=== PATIENT | male | born 1955 | race African-American/Black ===

== ENCOUNTER 2016-12-21 12:19 | Observation (INO) | payer OTHER, SELFPAY ==
[2016-12-21 12:43] LABS: #Basophils 0.1 thou/uL (0.0-0.2); #Eosinphils 0.1 thou/uL (0.0-0.7); #Lymphocytes 1.4 thou/uL (1.20-3.40); #Monocytes 0.7 thou/uL (0.11-0.59); #Neutrophils 2.8 thou/uL (1.40-6.50); %Eosinophils 1.4 % (0.0-10.0); %Lymphocytes 28.2 % (21.0-51.0); %Monocytes 14.4 % (0.0-10.0); Hematocrit 34.6 % (42.0-52.0); Mean Platelet Volume 7.6 fL (7.4-10.4)
[2016-12-21] MEDS ORDERED: Lidocaine Viscous Sol 2% 15 ml UD Cup ONE (12:59)
[2016-12-21] MEDS ORDERED: Mag-Al 1200 mg/1200 mg/30 ML UDCUP ONE (12:59)
[2016-12-21] MEDS ORDERED: Ondansetron HCl/PF 4 MG/2 ML Vial ONE (12:59)
--- NOTE | 2016-12-21 13:05 | RAD ---
CHEST 2 VIEWS: Date: 12/21/16 HISTORY: Chest pain. COMPARISON: 12/13/12. FINDINGS: Cardiac silhouette and pulmonary vasculature are unremarkable. Lungs remain hyperinflated. Mediastin um is midline. There is no confluent air space consolidation, pneumothorax, or pleural fluid evident . IMPRESSION: No active cardiopulmonary abnormalities are demonstrated. POS: [facility]
[2016-12-21 13:12] LABS: ALT (SGPT) 13 U/L (8-55); AST (SGOT) 17 U/L (5-34); Alkaline Phosphatase 66 U/L (40-150); Anion Gap 10 mmol/L (10-20); BUN (Urea Nitrogen) 7 mg/dL (8.4-25.7); Bilirubin, Total 0.4 mg/dL (0.2-1.2); CK (CPK) 109 U/L (30-200); Calc. Creatinine Clearance 0 mL/min (70-130); Calcium 8.3 mg/dL (7.8-10.44); Carbon Dioxide 31 mmol/L (23-31); Chloride 100 mmol/L (98-107); Estimated GFR-MDRD Greater than 90; Globulin 3.5 g/dL (2.4-3.5); Lipase 10 U/L (8-78)
[2016-12-21 13:14] LABS: Troponin I Less than 0.010 ng/mL (< 0.028)
[2016-12-21] MEDS ORDERED: Potassium Chloride 20 MEQ TAB ONE (13:31)
[2016-12-21 15:19] LABS: Bilirubin Negative (Negative); Blood, Urine Negative (Negative); Glucose, Urine (Dipstick) Negative (Negative); Ketone, Urine Negative (Negative); Nitrite Negative (Negative); Protein, Urine (Dipstick) Trace mg/dL (Neg-Trace); Urobilinogen 0.2 mg/dL (0.2-1.0)
[2016-12-21 15:49] LABS: Troponin I 0.011 ng/mL (< 0.028)
[2016-12-21] MEDS ORDERED: hydrALAZINE 20 MG/ML VIAL ONE (16:04)
[2016-12-21] MEDS ORDERED: Lidocaine 2% Viscous Solution 20 ML, Aluminum & Magnesium Hydroxide 30 ML, Donnatal Eli... SSW SCH ×3 (17:11)
[2016-12-21] MEDS ORDERED: Amlodipine 5 MG TAB PO SCH (17:11)
[2016-12-21] MEDS ORDERED: Loperamide HCl 2 MG CAP PO PRN (17:11)
[2016-12-21] MEDS ORDERED: Milk Of Magnesia 30 ML UDCUP PO PRN (17:11)
[2016-12-21] MEDS ORDERED: Guaifenesin DM 100-10/5 ML UDCUP PO PRN (17:11)
[2016-12-21] MEDS ORDERED: Zolpidem Tartrate 5 MG TAB PO PRN (17:11)
[2016-12-21] MEDS ORDERED: Nitroglycerin 0.4 MG TAB (25 Tab Bottle) PO PRN (17:11)
[2016-12-21 17:13] VITALS: BMI 22.4
[2016-12-21] MEDS ORDERED: Potassium Chloride 20 MEQ TAB PO SCH (17:45)
[2016-12-21 18:06] LABS: Amphetamine Not Detected (NotDetected); Methadone Not Detected (NotDetected); Methamphetamine Not Detected (NotDetected)
--- NOTE | 2016-12-21 18:23 | HP ---
DATE OF ADMISSION: 12/21/2016 PRIMARY CARE PHYSICIAN: Tyson stephens. REASON FOR ADMISSION: Epigastric abdominal pain. HISTORY OF PRESENT ILLNESS: This is a 56-year-old male with history of peptic ulcer disease, hypertension, polysubstance abuse, chronic tobacco use, noncompliance, chronic back pain, came to the hospital with above complaints. Patient is a poor historian, not able to give history. He was complaining of some chest pain. However, he was actually working with his family of his moving his apartment and he started having pain all over, mainly in the epigastric area. He had similar complaints a few years back and had similar admission. The patient had vomiting for the last couple of days and was found to be hypokalemic, no diarrhea reported. No back pain, no leg swelling, no sinus drainage, no skin rash, no sick contacts at home, no palpitation, no shortness of breath reported to me. PAST MEDICAL HISTORY: Positive for peptic ulcer disease, hypertension, polysubstance abuse, chronic tobacco use, noncompliance, chronic back pain. PAST SURGICAL HISTORY: Brain tumor removal, EGD, and colonoscopy. The patient cannot give a good account of, so the history was reviewed from the review of the records. HOME MEDICATIONS: He denies taking any medication. He said he takes blood pressure medicine of his 's sometimes. ALLERGIES: No known drug allergies. SOCIAL HISTORY: He reports using marijuana and also smokes a half-pack per day and drinks whenever he could, mostly 6 packs of beer. The patient has reported usage of cocaine in the past. FAMILY HISTORY: Positive for breast cancer in his mom. REVIEW OF SYSTEMS: The following complete review of systems was negative, unless otherwise mentioned in the HPI or below: Constitutional: Weight loss or gain, ability to conduct usual activities. Skin: Rash, itching. Eyes: Double vision, pain. ENT/Mouth: Nose bleeding, neck stiffness, pain, tenderness. Cardiovascular: Palpitations, dyspnea on exertion, orthopnea. Respiratory: Shortness of breath, wheezing, cough, hemoptysis, fever or night sweats. Gastrointestinal: Poor appetite, abdominal pain, heartburn, nausea, vomiting, constipation, or diarrhea. Genitourinary: Urgency, frequency, dysuria, nocturia. Musculoskeletal: Pain, swelling. Neurologic/Psychiatric: Anxiety, depression. Allergy/Immunologic: Skin rash, bleeding tendency. PHYSICAL EXAMINATION: GENERAL: This is a thin-built white male, in no apparent distress. VITAL SIGNS: Pulse 72, respiratory rate 18, blood pressure 194/104. HEENT: Atraumatic, normocephalic. Oral mucosa is moist. NECK: Supple. HEENT: Pupils equal, round, and reactive to light. NECK: Supple. No carotid bruit. CARDIOVASCULAR: S1, S2 heard. Rate and rhythm regular. RESPIRATORY: Clear. GASTROINTESTINAL: Abdomen is soft, nontender, bowel sounds are heard. MUSCULOSKELETAL: No tenderness. DERMATOLOGIC: No skin rash. NEUROLOGIC: Alert, awake. PSYCHIATRIC: Normal affect normal. LABORATORY AND X-RAY FINDINGS: WBC 5.0, hemoglobin is 10.9, potassium is 2.5, BUN is 7, creatinine is 0.9, albumin is 3.5. ASSESSMENT AND PLAN: 1. Abdominal/chest pain. Plan is to rule out a cardiac etiology. We will also do ultrasound of the abdomen. We will check stress test in the morning. We will check cardiac profile. I do not think this is cardiac in origin, but we will rule out cardiac etiology given his substance abuse. 2. Hypertension, not on any medication. We will start on amlodipine for now. We will hold beta sergey and ROME inhibitor. At this point, we will up titrate medication as needed. We will also use p.r.n. hydralazine at this point. 3. Polysubstance abuse. We will check urine drug screen and . 4. Severe hypokalemia. Plan is to replace the potassium, closely monitor potassium and magnesium level and replace magnesium also. 5. Anemia, mild, which is microcytic. We will check iron studies. 6. History of alcohol abuse. 7. Mild proteinuria and malnutrition with mild hypoalbuminemia. 8. P.r.n. order set. 9. Code status: FULL. 10. Gastrointestinal/deep vein thrombosis prophylaxis. We will use sequential compression devices and Protonix. 11. The patient was also given gastrointestinal cocktail and started on Protonix and we will follow and we will check abdominal ultrasound to rule out any abdominal pathology for pain and CAT scan if needed. 12. Further decision will be made based on clinical course. We will order a stress test for the morning. Keep patient n.p.o. MTDD
[2016-12-21 18:41] LABS: Troponin I Less than 0.010 ng/mL (< 0.028)
[2016-12-21] MEDS ORDERED: Ondansetron HCl/PF 4 MG/2 ML Vial IVP PRN (19:15)
[2016-12-21] MEDS: HYDROcodone/Acetaminophen 7.5/325 mg Tablet PO PRN ×2 (19:48→23:59)
[2016-12-21] MEDS ORDERED: hydrALAZINE 20 MG/ML VIAL SLOW IVP PRN (20:00)
[2016-12-21 22:57] LABS: Troponin I Less than 0.010 ng/mL (< 0.028)
[2016-12-22 06:09] LABS: Anion Gap 8 mmol/L (10-20); BUN (Urea Nitrogen) 7 mg/dL (8.4-25.7); Calc. Creatinine Clearance 90 mL/min (70-130); Calcium 8.1 mg/dL (7.8-10.44); Carbon Dioxide 24 mmol/L (23-31); Chloride 105 mmol/L (98-107); Cholesterol 108 mg/dl (< 200 Desired); Estimated GFR-MDRD Greater than 90; Iron 13 ug/dL (65-175); LDL Cholesterol, Calculated 44 mg/dL
[2016-12-22 06:12] LABS: Hematocrit 34.4 % (42.0-52.0); Mean Platelet Volume 8.3 fL (7.4-10.4); Neutrophil 47 % (42-75); Nucleated RBC 1 % (0); Red Blood Cell (RBC) Count 4.35 mill/uL (4.70-6.10); White Blood Cell (WBC) Count 4.6 thou/uL (4.8-10.8)
[2016-12-22] MEDS ORDERED: Amlodipine 10 MG TAB PO SCH (09:00)
[2016-12-22] MEDS ORDERED: FLU VACC QS2017-18 36 mo. & older 0.5 ML SYRINGE IM ONE (09:00)
[2016-12-22] MEDS ORDERED: IRON SUCROSE COMPLEX 100 MG/5 ML SLOW IVP SCH (09:15)
--- NOTE | 2016-12-22 09:42 | ULT ---
ULTRASOUND ABDOMEN: HISTORY: Epigastric pain. FINDINGS: There are cysts in the liver, measuring up to 1.6 cm. The spleen measures 9 cm in length and is unr emarkable. No gallstones, gallbladder wall thickening, or pericholecystic fluid is seen. The commo n duct measures 6 mm in diameter. The pancreas is obscured due to overlying bowel gas. The kidneys and visualized portions of the aorta and IVC are unremarkable. No free fluid is seen. IMPRESSION: 1. Hepatic cysts. 2. No evidence of cholelithiasis. POS: [facility]
[2016-12-22] MEDS: Potassium Chloride 20 MEQ TAB PO SCH ×2 (11:56→16:14)
[2016-12-22] MEDS: HYDROcodone/Acetaminophen 7.5/325 mg Tablet PO PRN (11:57)
[2016-12-22 15:31] VITALS: BP 174/95; TEMP 98.6
[2016-12-22] MEDS ORDERED: Hydrochlorothiazide 25 MG TAB PO SCH (16:00)
--- NOTE | 2016-12-22 16:04 | NM ---
CARDIAC SPECT: 12/22/16 HISTORY: 61-year-old male with chest pain, hypertension, smoker. TECHNIQUE: A myocardial perfusion scan was performed using the single isotope one day protocol with technetium 99m Sestamibi. 10 millicuries was injected intravenously for the rest exam followed by 33 millicurie s for the stress study. Pharmacologic stress with Lexiscan was monitored and interpreted by Lety Rashid , nurse practitioner. FINDINGS: Homogeneous tracer distribution is seen in the myocardial segments on stress and rest images without fixed or reversible defects. GATED SPECT LVEF: 45%. WALL MOTION EXAM: Normal. IMPRESSION: Normal myocardial perfusion scan. POS: [facility]
[2016-12-22] MEDS ORDERED: Regadenoson 0.4 MG/5 ML SYRINGE ONE (16:24)
--- NOTE | 2016-12-23 01:30 | DIS ---
DATE OF ADMISSION: 12/21/2016 DATE OF DISCHARGE: 12/22/2016 CONDITION AT THE TIME OF DISCHARGE: Stable and improved. DISCHARGE DIAGNOSES: 1. 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 2. Uncontrolled hypertension. 3. Medication compliance. 4. Drug abuse. 5. Tobacco abuse. 6. History of peptic ulcer disease. 7. Hypertension. 8. Chronic back pain. DISCHARGE MEDICATIONS: Include amlodipine 10 mg daily, hydrochlorothiazide 12.5 mg p.o. daily and o meprazole 20 mg daily. PROCEDURES DONE IN THE HOSPITAL: Include; 1. Abdominal ultrasound, which is negative for any cholelithiasis gallbladder wall thickening or pe richolecystic fluid. Hepatic cyst seen. 2. Nuclear medicine stress test, which is negative for any reversible or fixed defect. EF estimate d at 45%. ADMISSION HISTORY: Mr. Hewitt is a 61-year-old -Turkmen male with history of hypertension , peptic ulcer disease, substance abuse, noncompliance, who presented to the Emergency Room with com plaints of epigastric abdominal pain. He was hemodynamically stable upon presentation, but the bloo d pressure was as high as 194/104. He was admitted to rule out cardiac etiology as well as abdomina l workup. His urine drug screen was positive for cocaine. Please see admission history and physica l for further details. His potassium at the time of presentation was also low at 2.5. HOSPITAL COURSE: He was admitted on telemetry unit and serial cardiac enzymes were trended. They r emained within normal range. His potassium was supplemented and was 3.6 prior to discharge. His li pid panel was checked and his LDL was 44, total cholesterol 108 and triglycerides 32. TSH was unrem arkable. He was found to be anemic with hemoglobin of 10.9, which was microcytic. His iron levels were checked and his iron levels were low at 13 with low ferritin at 8.9. He was given Venofer 200 mg IV prior to discharge. His blood pressure remained an issue throughout his hospitalization. He was started on Norvasc and hydrochlorothiazide and he was given prescriptions for the same. He is instructed to follow up with his primary care physician. Nuclear medicine stress test was obtained and was negative for any ACS . At this time, he is hemodynamically stable and will be discharged shortly. I discussed cocaine a buse in detail and to my surprise, the patient and his significant other was very surprised that the cocaine can be so harmful. I discussed all the risks with them and hopefully they will abstain fro m now. He was seen and examined prior to discharge. PHYSICAL EXAMINATION: Include: VITAL SIGNS: Temperature 98.6, pulse of 63, respirations 16, saturating 95% on room air, blood pres sure 174/95. GENERAL: No acute distress, awake, alert, oriented x3. CHEST: Clear to auscultation without any wheezing, rales or rhonchi. Rhythm is regular without any murmur, rubs or gallops. ABDOMEN: Soft, nontender, nondistended. LABORATORY EXAMINATION: Hemoglobin 10.8 with hematocrit of 34.4, troponin less than 0.010 x3. Sodi um 133, potassium 3.6, otherwise as mentioned above.
== END 2016-12-22 17:51 | disposition home or self-care (01) ==
LOC: ERS 12:19 → 2SW 17:10
PROVIDERS: ADMIT Internal Medicine Nephrology; ATTEND Internal Medicine Nephrology
DX: R07.9 Chest pain, unspecified (principal); I10 Essential (primary) hypertension; F19.10 Other psychoactive substance abuse, uncomplicated; M54.9 Dorsalgia, unspecified; G89.29 Other chronic pain; F17.210 Nicotine dependence, cigarettes, uncomplicated; E46 Unspecified protein-calorie malnutrition; E88.09 Other disorders of plasma-protein metabolism, not elsewhere classified; D64.9 Anemia, unspecified; E87.6 Hypokalemia; R80.9 Proteinuria, unspecified; Z68.22 Body mass index [BMI] 22.0-22.9, adult; Z91.14 Patient's other noncompliance with medication regimen; Z79.899 Other long term (current) drug therapy; Z98.890 Other specified postprocedural states; Z87.11 Personal history of peptic ulcer disease; Z80.3 Family history of malignant neoplasm of breast
CPT/HCPCS: 36415; 71020; 76700; 78452; 80048; 80053; 80061; 80306; 81003; 82553; 82728; 83540; 83550; 83690; 83735; 84443; 84484; 85025; 90471; 90682; 90732; 93005; 93017; 94760; 96361; 96374; 96375; A9500; G0008; G0009; G0378; J0360; J1756; J2405; J2785; Q2036

== ENCOUNTER 2017-03-15 13:44 | Observation (INO) | payer SELFPAY ==
[2017-03-15] MEDS ORDERED: Nitroglycerin 2% Ointment 1 INCH/1 GM Packet ONE (14:09)
[2017-03-15 14:13] LABS: Lavender RECEIVED; Red RECEIVED
[2017-03-15 14:16] LABS: #Monocytes 0.4 thou/uL (0.11-0.59); #Neutrophils 3.2 thou/uL (1.40-6.50); %Basophils 0.2 % (0.0-1.0); %Eosinophils 0.3 % (0.0-10.0); %Lymphocytes 21.6 % (21.0-51.0); %Monocytes 9.5 % (0.0-10.0); %Neutrophils 68.5 % (42.0-75.0); Hemoglobin 12.1 g/dL (14.0-18.0); Mean Corpuscular HGB CONC 30.6 g/dL (32.0-36.0); Mean Corpuscular Hemoglobin 24.2 pg (27.0-31.0); Mean Platelet Volume 8.8 fL (7.4-10.4); Platelet Count 267 thou/uL (130-400); RBC Distribution Width 19.4 % (11.5-14.5); White Blood Cell (WBC) Count 4.7 thou/uL (4.8-10.8)
[2017-03-15 14:37] LABS: ALT (SGPT) 14 U/L (8-55); AST (SGOT) 26 U/L (5-34); Albumin 3.7 g/dL (3.4-4.8); Alkaline Phosphatase 63 U/L (40-150); Anion Gap 16 mmol/L (10-20); BUN (Urea Nitrogen) 8 mg/dL (8.4-25.7); Bilirubin, Total 0.7 mg/dL (0.2-1.2); CK (CPK) 275 U/L (30-200); Calc. Creatinine Clearance 0 mL/min (70-130); Calcium 8.9 mg/dL (7.8-10.44); Carbon Dioxide 20 mmol/L (23-31); Chloride 103 mmol/L (98-107); Estimated GFR-MDRD Greater than 90; Globulin 3.6 g/dL (2.4-3.5); Glucose 113 mg/dL (80-115); Potassium 3.9 mmol/L (3.5-5.1); Protein, Total 7.3 g/dL (5.8-8.1); Sodium 135 mmol/L (136-145)
[2017-03-15 14:44] LABS: CKMB 2.5 ng/mL (0-6.6); Troponin I 0.013 ng/mL (< 0.028)
--- NOTE | 2017-03-15 14:44 | CT ---
HEAD CT WITHOUT CONTRAST: Date: 03-15-17 Comparison: 05-29-08 History: Possible seizure. Patient reports a history of brain tumor. Technique: Serial axial CT imaging at 5 mm intervals from vertex through skull base without contrast. IMPRESSION: The imaged paranasal sinuses and mastoid air cells are well aerated. There is no displaced calvarial fracture. There is atherosclerotic calcification of the distal left vertebral artery. No intracranial hemorrhage, midline shift, mass effect or ventricular enlargement. IMPRESSION: No acute findings. POS: [facility]
[2017-03-15] MEDS ORDERED: Aspirin 81 mg Enteric Coated Tablet ONE (15:13)
[2017-03-15] MEDS ORDERED: hydrALAZINE 20 MG/ML VIAL ONE (15:25)
[2017-03-15] MEDS ORDERED: levETIRAcetam In NaCl (Iso-Os) 1,500 MG in Premix Bag 1 BAG IVPB SCH ×2 (15:30)
[2017-03-15] MEDS ORDERED: Ondansetron ODT 4 MG TAB SL PRN (16:47)
[2017-03-15] MEDS ORDERED: Acetaminophen 325 MG TAB PO PRN ×2 (16:47→17:14)
[2017-03-15] MEDS ORDERED: Ondansetron HCl/PF 4 MG/2 ML Vial IVP PRN ×2 (16:47→17:14)
[2017-03-15] MEDS ORDERED: Lorazepam 2 MG/ML VIAL SLOW IVP PRN ×2 (16:48→17:14)
[2017-03-15 16:54] VITALS: BMI 23.1
[2017-03-15] MEDS ORDERED: Hydrochlorothiazide 25 MG TAB PO SCH (17:14)
[2017-03-15] MEDS ORDERED: Amlodipine 10 MG TAB PO SCH (17:14)
[2017-03-15] MEDS ORDERED: Ondansetron ODT 4 MG TAB PO PRN (17:14)
[2017-03-15] MEDS: Sodium Chloride 0.9% 1,000 ML IV SCH (17:35)
[2017-03-15 17:40] LABS: Troponin I 0.024 ng/mL (< 0.028)
[2017-03-15 18:04] LABS: HIV (1/2) Antibody/Antigen Non-Reactive (NonReactive); HIV 1/2 INDEX 0.06 S/CO (<1.00); Hep C IgG Ab Non-Reactive (NonReactive); Hep C Index 0.17 S/CO (0-0.79)
--- NOTE | 2017-03-15 19:08 | RAD ---
TWO VIEWS RIGHT HIP 03/15/17 HISTORY: Patient is post fall and now has tenderness overlying the greater trochanter right hip. FINDINGS: There is right hip osteoarthritis with subchondral cystic changes and sclerosis involving the femoral head and supraacetabular region. There is no fracture or dislocation seen on this exam. Calcificatio ns overlie the pelvis likely related to combination of phleboliths and probably prostate calcificati ons. IMPRESSION: 1. Right hip osteoarthritis. 2. No acute osseous abnormality right hip. POS: [facility]
[2017-03-15 19:32] LABS: Medtox Reader # READER 1
[2017-03-15] MEDS ORDERED: hydrALAZINE 20 MG/ML VIAL SLOW IVP PRN (19:32)
[2017-03-15 19:33] LABS: Amphetamine Not Detected (NotDetected); Barbiturates Screen Not Detected (NotDetected); Benzodiazepine Screen Not Detected (NotDetected); Cocaine Metabolite Screen Detected (NotDetected); Medtox Control Line Valid? VALID (VALID); Methadone Not Detected (NotDetected); Methamphetamine Not Detected (NotDetected); Opiate Screen Not Detected (NotDetected); Oxycodone Screen Not Detected (NotDetected); Phencyclidine (PCP) Not Detected (NotDetected); THC/Cannabinoid Screen Not Detected (NotDetected); Tricyclic Screen Not Detected (NotDetected)
[2017-03-15] MEDS: Famotidine 20 MG TAB PO SCH (20:00)
[2017-03-15 20:43] LABS: Troponin I 0.021 ng/mL (< 0.028)
[2017-03-15] MEDS ORDERED: Nitroglycerin 2% Ointment 1 INCH/1 GM Packet TOP SCH (22:00)
--- NOTE | 2017-03-15 22:14 | HP-2 ---
DATE OF SERVICE: 03/15/2017 REPORT TYPE: History and physical. LOCATION: [place], [place]. CODE STATUS: DNR. PRIMARY CARE PHYSICIAN: Tyson stephens. ATTENDING PHYSICIAN: Dr. Joselito Choi. RESIDENT PHYSICIAN: Dr. Everardo Calvo. HISTORIAN: History provided by patient. CHIEF COMPLAINT: Seizures. HISTORY OF PRESENT ILLNESS: A 61-year-old male with past medical history of drug use and hypertensio n presents to the ER by EMS secondary to reported seizure witnessed by the patient's partner. Report ed to EMS that patient began foaming at the mouth and shaking and was confused while this was going o n. Per patient, he said he lay down to sleep and the next thing he remembers he was waking up in a s tretcher, being transported by an ambulance. He denied loss of bowel and bladder function, weakness, numbness, tingling, headache, fever, chills, recent illness, and recent drug use. Patient was orien tres to person, place, and day of week. Denied chest pain, shortness of breath, nausea, vomiting, dani rrhea, constipation. ER COURSE: Patient was given hydralazine, aspirin, sublingual nitro, and 1500 mg of Keppra. PAST MEDICAL HISTORY: Hypertension. PAST SURGICAL HISTORY: Unknown. ALLERGIES: No known drug allergies. MEDICATIONS: Amlodipine 10 mg, hydrochlorothiazide 12.5 mg, omeprazole 20 mg. FAMILY HISTORY: Unknown. SOCIAL HISTORY: Tobacco use, one and half to 1 pack per day for the last 40 years, giving patient ap proximately 30-year pack history. Patient admits to 1-240 ounce drinks of alcohol per day and admits to prior marijuana use. Denies ill contacts. REVIEW OF SYSTEMS: Patient denies fever or chills. Eyes: Denies vision change. ENT: Denies sore throat, epistaxis. Respiratory: Denies cough, shortness of breath. Cardiovascular: Denies chest p ain, palpitations. Gastrointestinal: Denies nausea, vomiting, diarrhea, constipation, abdominal mo n. Genitourinary: Denies incontinence. Musculoskeletal: Admits to pain in his right hip. Neuro: Denies weakness, numbness, and syncope. Patient complains of seizure. PHYSICAL EXAMINATION: VITAL SIGNS: Blood pressure 179/114, pulse 84, respirations 18, T-max 97.8, pulse ox 93% on room ai r, current weight 77.11 kilograms. GENERAL: Patient is alert, oriented to person and place. No acute distress. Thin, appropriately in teractive. EYES: Pupils equal, round, reactive to light with accommodation. Extraocular muscles intact. There is conjunctival injection present. ENT: Patient has poor dentition. Oropharynx is within normal limits. NECK: Supple without lymphadenopathy. No thyromegaly. CARDIOVASCULAR: Regular rate and rhythm. No murmurs, rubs, or gallops. Radial pulse is 2+. Pedal pulse is 2+. RESPIRATORY: Normal effort, no retractions. Lungs had diffuse rhonchi and expiratory wheezes throug hout. SKIN: Warm and dry. ABDOMEN: Soft, nontender, normoactive bowel sounds in all 4 quadrants. No mass, distention, or orga nomegaly. EXTREMITIES: No clubbing, cyanosis, or edema. MUSCULOSKELETAL: Structure within normal limits. Tone within normal limits. Strength 5/5. NEUROLOGIC: No focal deficits. Sensation within normal limits. DTRs 2+/4. Cranial nerves II-XII a re intact. GCS 15. PSYCHIATRIC: Patient is appropriately interactive. LABORATORY RESULTS: White blood cell count 4.7, hemoglobin 12.1, hematocrit 39.5, platelets 267. So dium 135, potassium 3.9, chloride 103, bicarbonate 20, BUN 8, creatinine 0.9, glucose 113, calcium 8. 9. Albumin 7.3, total protein 3.7, total bilirubin 0.7. AST 26, ALT 14, alkaline phosphatase 63, CK is 275, BNP 130. Troponin 0.013. Prolactin 36.69. Urine drug screen is pending. IMAGING: EKG showed normal sinus rhythm with rate in the 80s with one preventricular contraction. Brain CT showed no acute findings. ASSESSMENT AND PLAN: 1. Loss of consciousness. CT is negative. Electrolytes are within normal limits. UDS and urinalys is are pending. We will check a TSH, magnesium, phosphorus, and admit the patient for observation to the stroke unit. Given patient's history of seizure versus intoxication versus cardiovascular sourc e for the loss of consciousness remains on the differential, we will consider a.m. neuro consult. Re check troponin x3. Initial troponin is negative. 2. Hypertension, uncontrolled. Patient has been off medications. We will restart amlodipine 10 mg and hydrochlorothiazide 12.5. Vitals will be taken per unit routine. 3. History of cocaine use. We will avoid use of beta blockers at this time. 4. History of alcohol abuse. Patient was started on ROME protocol plus 100 mg thiamine IV daily and normal saline at 125 mL per hour. 5. Elevated CK, normal saline at 125 mL per hour. 6. Hyponatremia. We will recheck a.m. BMP. 7. Mild microcytic anemia. We will recheck in a.m. CBC. 8. History of drug use. We will screen for hepatitis C antibody and human immunodeficiency virus. DISPOSITION AND LENGTH OF THE HOSPITAL STAY: Patient is stable. Expected length of stay less than o r equal to 2 days. Symptomatic medications will be provided. History and physical exam as well as management discussed with Dr. Joselito Choi, who agrees wit h the above history, physical exam, assessment and plan unless otherwise noted in his addendum.
[2017-03-16] MEDS: Sodium Chloride 0.9% 1,000 ML IV SCH ×2 (02:08→09:53)
--- NOTE | 2017-03-16 02:50 | HP ---
DATE OF ADMISSION: 03/15/2017 CHIEF COMPLAINT: Found down. HISTORY OF PRESENT ILLNESS: This is a 61-year-old male with past history of hypertension, who had EM S called by his who reportedly found him foaming at the mouth and down in the apartment and subs equently was transferred to the ED by EMS where he was. There is some concern about him being postic jono, needs to seek, subsequently admitted to our service. He is doing well right now, but he has com plained of some hip pain from a fall a week ago, but other than that no complaints. He says he does not remember much of what happened today, but he did attend a [employer] last or the night before where th ere was quite a bit of crack cocaine and marijuana smoked. He does not remember being confused after wards. He mostly just remembers the entire ride to the hospital. Denies any tongue or cheek biting. No oral or dental pain currently. Also, denies any loss of bowel or bladder function that was note d by EMS or the ED physician. He also specifically denies headache, chest pain, shortness of breath, palpitations, numbness, weakness, confusion, or any other complaint. PAST MEDICAL HISTORY: Significant for hypertension. PAST SURGICAL HISTORY: Noncontributory. ALLERGIES: No known drug allergies. MEDICATIONS: Include Norvasc hydrochlorothiazide. SOCIAL HISTORY: He has about a [id number] smoking history, also drinks. He also drinks one or two 40 ounces a day of beer and has intermittent marijuana use in spite of the cocaine as well. FAMILY HISTORY: Noncontributory. REVIEW OF SYSTEMS: All other systems reviewed and are negative except as dictated above. PHYSICAL EXAMINATION: VITAL SIGNS: Include temperature 98.6, pulse 87, respirations 18, O2 sat 97, blood pressure 175/104. GENERAL: He is alert and resting comfortably in bed, was asleep and I woke him up easily. HEENT: Eyes with arcus senilis. Pupils equal, round, reactive to light. Pinna normal. Nares paten t without discharge. Extremely poor dentition. No obvious mucosal or lingual lacerations from any t ongue biting, but in light of his poor dentition, it is certainly possible that he just could not pro duce those that they mentioned. NECK: Without thyromegaly and trachea midline. CARDIOVASCULAR: Regular rate and rhythm without murmurs, gallops or rubs. No carotid bruits. No re nal bruits. No peripheral edema. Distal pulses are 2+. LUNGS: Clear to auscultation bilaterally with the exception of intermittent expiratory wheezes and n o crackles. GASTROINTESTINAL: Bowel sounds positive. Nontender to palpation. GENITOURINARY: Deferred. MUSCULOSKELETAL: With obvious deformity or contracture. There is no palpation of the trochanter of the right hip with no overlying bruising. He does have full range of motion and strength is 5/5 in t he right lower extremity. NEUROLOGIC: Cranial nerves II-XII intact and symmetric. His speech is a little bit sick, but he say s this is his usual. Motor 5/5 in upper and lower extremities. Sensation intact to light touch in u pper and lower extremities. DTRs of patellar are 2/4. PSYCHIATRIC: Alert and oriented x3 for me. Mood and affect appropriate for current medical conditio n. LABORATORY DATA: Include white count of 4.7, hemoglobin 12.1 with MCV of 79, platelet count 267. So dium 135, bicarbonate 20, BUN 8, creatinine 0.9. LFTs are unremarkable. Creatine kinase 275. BNP 1 30. Troponin first 1.013, second 0.024. No EKG is in his chart. A CT of the brain with the read in cludes no acute intracranial findings. ASSESSMENT AND PLAN: This is a 61-year-old with: 1. Acute encephalopathy wide differential including drug abuse, new onset seizure, stroke, complex m igraine, hypoglycemia and other. He has a negative CT brain, we will wait for UDS to see if he does indeed test positive for the drugs and he states he was around and to go and continue neuro checks, s eizure precautions. 2. Hypertensive urgency. We will restart his home medications. Hold off on labetalol until UDS is negative. Hydralazine p.r.n. 3. History of drug abuse. We will send HIV and hepatitis panel. 4. Leukopenia. We will again send HIV. 5. Anemia with MCV of 79. We will go ahead and send iron studies. 6. Hyponatremia, uncertain etiology. At this point, we will await UDS and extend workup if necessar y. 7. Acidosis, likely secondary to whatever the spell was and we will recheck in the morning. He is r eceiving maintenance fluids. 8. Elevated creatinine kinase, likely secondary to his spell. We will recheck in the morning. Cont inue hydration. 9. Elevated BNP, just 130 no signs clinically of heart failure. 10. Prolactin elevated of 36.69. This is indeterminate. We will wait UDS and monitor for any seizu re activity. 11. Deep venous thrombosis prophylaxis with diet. 12. GI prophylaxis with Lovenox.
[2017-03-16 05:32] LABS: #Basophils 0.1 thou/uL (0.0-0.2); #Eosinphils 0.1 thou/uL (0.0-0.7); #Lymphocytes 1.5 thou/uL (1.20-3.40); #Monocytes 0.6 thou/uL (0.11-0.59); %Basophils 1.6 % (0.0-1.0); %Eosinophils 1.4 % (0.0-10.0); %Lymphocytes 34.4 % (21.0-51.0); %Monocytes 14.5 % (0.0-10.0); %Neutrophils 48.2 % (42.0-75.0); Hemoglobin 11.2 g/dL (14.0-18.0); Mean Corpuscular Hemoglobin 24.4 pg (27.0-31.0); Mean Corpuscular Volume 78.7 fl (80.0-94.0); Mean Platelet Volume 8.8 fL (7.4-10.4); Platelet Count 259 thou/uL (130-400); RBC Distribution Width 19.2 % (11.5-14.5); Red Blood Cell (RBC) Count 4.58 mill/uL (4.70-6.10); White Blood Cell (WBC) Count 4.2 thou/uL (4.8-10.8)
[2017-03-16 06:06] LABS: Anion Gap 10 mmol/L (10-20); BUN (Urea Nitrogen) 7 mg/dL (8.4-25.7); Calc. Creatinine Clearance 78 mL/min (70-130); Calcium 8.5 mg/dL (7.8-10.44); Carbon Dioxide 24 mmol/L (23-31); Chloride 106 mmol/L (98-107); Estimated GFR-MDRD Greater than 90; Glucose 90 mg/dL (80-115); Potassium 3.3 mmol/L (3.5-5.1); Sodium 137 mmol/L (136-145)
[2017-03-16 06:20] LABS: Ferritin 11.57 ng/mL (22-322); Thyroid Stimulating Hormone 1.7956 uIU/mL (0.35-4.94)
[2017-03-16 06:31] LABS: Iron 67 ug/dL (65-175); Iron Binding Capacity, Total 345 mcg/dL (261-462)
[2017-03-16] MEDS ORDERED: Potassium Chloride 20 MEQ TAB PO SCH (07:45)
--- NOTE | 2017-03-16 08:33 | PDOC.FM ---
- Subjective Subjective: Pt reports he is feeling better today. No acute events overnight. Pt is resting comfortably in bed and wishing to eat breakfast. Upon questioning pt reports he used cocaine approx 2 days ago that was laced into marijuana. Spoke with pt regarding drug abuse and counseled on cessation. Pt agreeable. - Objective Vital Signs & Weight: Vital Signs (12 hours) Temp Pulse Resp BP BP Pulse Ox 03/16/17 08:02 98.5 F 73 16 137/86 96 03/16/17 04:10 98.4 F 93 16 136/87 136/87 96 03/15/17 23:32 98.7 F 95 16 160/89 H 95 03/15/17 23:20 160/89 H Weight Weight 66.497 kg I&O: 03/15/17 03/16/17 03/17/17 06:59 06:59 06:59 Intake Total 1862 Output Total 875 Balance 987 Result Diagrams: 03/16/17 04:33 03/16/17 04:33 <Everardo Calvo - Last Filed: 03/16/17 08:31> - Objective Vital Signs & Weight: Vital Signs (12 hours) Temp Pulse Resp BP BP Pulse Ox 03/16/17 08:02 98.5 F 73 16 137/86 96 03/16/17 04:10 98.4 F 93 16 136/87 136/87 96 03/15/17 23:32 98.7 F 95 16 160/89 H 95 03/15/17 23:20 160/89 H Weight Weight 66.497 kg I&O: 03/15/17 03/16/17 03/17/17 06:59 06:59 06:59 Intake Total 1862 Output Total 875 Balance 987 Result Diagrams: 03/16/17 04:33 03/16/17 04:33 <Erika Silva - Last Filed: 03/16/17 10:59> Phys Exam - Physical Examination Constitutional: NAD HEENT: PERRLA conjunctical injection Neck: no nodes Respiratory: no wheezing, no rales, no rhonchi, clear to auscultation bilateral Cardiovascular: RRR, no significant murmur, no rub Gastrointestinal: soft, non-tender, no distention, positive bowel sounds Musculoskeletal: no edema, pulses present Neurological: non-focal, moves all 4 limbs Psychiatric: normal affect Skin: no rash <Everardo Calvo - Last Filed: 03/16/17 08:31> Dx/Plan (1) Acute encephalopathy Code(s): G93.40 - ENCEPHALOPATHY, UNSPECIFIED Status: Acute (2) Elevated CK Status: Acute (3) Elevated prolactin level Code(s): E22.9 - HYPERFUNCTION OF PITUITARY GLAND, UNSPECIFIED Status: Acute (4) Hyponatremia Code(s): E87.1 - HYPO-OSMOLALITY AND HYPONATREMIA Status: Acute (5) Microcytic anemia Code(s): D50.9 - IRON DEFICIENCY ANEMIA, UNSPECIFIED Status: Acute (6) Tobacco abuse Code(s): Z72.0 - TOBACCO USE Status: Acute (7) Cocaine abuse Code(s): F14.10 - COCAINE ABUSE, UNCOMPLICATED Status: Acute (8) Alcohol abuse Code(s): F10.10 - ALCOHOL ABUSE, UNCOMPLICATED Status: Acute - Plan Plan: loss of consciousness/change in mental status likely 2/2 toxic ingestion, pt has been stable overnight and there has been no seizure activity, TSH normal, e- lytes wnl. continue IVF for elevated ck hyponatremia resolved hypokalemia: replace htn: continue amlodipine and HCTZ, BP improved alcohol abuse, continue thiamine and ase protocol drug abuse: UDS positive for cocaine, counseled on cessation, hiv/hep c negative Anemia: decreased MCV and Hgb of 11, start on ferrous sulfate 325/day with vit c 500mg/day and colace 100mg bid <Everardo Calvo - Last Filed: 03/16/17 08:31> Attending Addendum - Attending Addendum I personally evaluated the patient and discussed the management with Dr. Calvo I agree with the History, Examination, Assessment and Plan documented above with any addition or exceptions noted below- Patient without complaints. Denies any LEZAMA, weakness. Afebrile BP 137/86 A/P: 1) Possible seizure- no seizures overnight; suspect may have been secondary to cociane use and hypertension. 2) HTN urgency- Improved with medication; counselled on need to continue medication and follow-up on outpatient basis. 3) Cicaine abuse- contributing to HTN; counselled regarding cessation. Plan to d/c home later today of BP remain stable. <Erika Silva - Last Filed: 03/16/17 10:59>
[2017-03-16] MEDS ORDERED: Amlodipine 10 MG TAB PO SCH (09:00)
[2017-03-16] MEDS ORDERED: Prenatal Vitamin 1 TAB PO SCH (09:00)
[2017-03-16] MEDS ORDERED: Ascorbic Acid 500 mg Chewable Tablet PO SCH (09:00)
[2017-03-16] MEDS ORDERED: Hydrochlorothiazide 25 MG TAB PO SCH (09:00)
[2017-03-16] MEDS ORDERED: Docusate 100 MG CAP PO SCH (09:00)
[2017-03-16] MEDS: Famotidine 20 MG TAB PO SCH (09:44)
[2017-03-16 12:15] VITALS: TEMP 98.6
[2017-03-16 13:07] VITALS: BP 137/86
[2017-03-17] MEDS ORDERED: Ferrous Sulfate 325 MG TAB PO SCH (08:00)
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
== END 2017-03-16 15:48 | disposition home or self-care (01) ==
LOC: ERS 13:44 → 2SW 16:28
PROVIDERS: ADMIT Family Medicine; ATTEND Family Medicine
DX: G93.40 Encephalopathy, unspecified (principal); E22.1 Hyperprolactinemia; D64.9 Anemia, unspecified; E87.1 Hypo-osmolality and hyponatremia; R74.8 Abnormal levels of other serum enzymes; F14.10 Cocaine abuse, uncomplicated; I10 Essential (primary) hypertension; F17.210 Nicotine dependence, cigarettes, uncomplicated; F10.10 Alcohol abuse, uncomplicated; I16.0 Hypertensive urgency; D72.819 Decreased white blood cell count, unspecified; E87.2 Acidosis; R79.89 Other specified abnormal findings of blood chemistry; Z79.899 Other long term (current) drug therapy
CPT/HCPCS: 36415; 70450; 80048; 80053; 80306; 82553; 82728; 83540; 83550; 83735; 83880; 84100; 84146; 84443; 84484; 85025; 86803; 87389; 93005; 96361; 96365; 96367; 96375; G0378; J0360; J1953; J3411; J7050

== ENCOUNTER 2017-06-10 18:25 | Emergency (ER) | payer SELFPAY ==
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
[2017-06-10] MEDS ORDERED: Ketorolac Tromethamine 30 MG/ML VIAL ONE (19:46)
== END 2017-06-10 20:06 | disposition home or self-care (01) ==
LOC: ERS 18:25
DX: S70.01XA Contusion of right hip, initial encounter (principal); I10 Essential (primary) hypertension; F17.210 Nicotine dependence, cigarettes, uncomplicated; Z85.841 Personal history of malignant neoplasm of brain; Z71.6 Tobacco abuse counseling; V17.4XXA Pedal cycle driver injured in collision with fixed or stationary object in traffic accident, initial encounter
CPT/HCPCS: 72170; 96372; 99406; J1885

== ENCOUNTER 2017-11-28 02:00 | Emergency (ER) | payer SELFPAY ==
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
== END 2017-11-28 03:44 | disposition home or self-care (01) ==
LOC: ERS 02:00
DX: R07.89 Other chest pain (principal); M25.552 Pain in left hip; M25.522 Pain in left elbow; Z71.6 Tobacco abuse counseling; I10 Essential (primary) hypertension; F17.210 Nicotine dependence, cigarettes, uncomplicated; Y04.0XXA Assault by unarmed brawl or fight, initial encounter
CPT/HCPCS: 70450; 71046; 99406

== ENCOUNTER 2020-06-05 00:09 | Emergency (ER) | payer SELFPAY ==
[2020-06-05] MEDS ORDERED: Lidocaine 1% w/Epinephrine 1:100K 20 ML VIAL ONE (00:34)
[2020-06-05] MEDS ORDERED: Ketorolac Tromethamine 30 MG/ML VIAL ONE (00:51)
[2020-06-05] MEDS ORDERED: Boostrix 0.5 ML (Tdap) VIAL ONE (01:18)
== END 2020-06-05 02:26 | disposition home or self-care (01) ==
LOC: ERS 00:09
DX: S01.81XA Laceration without foreign body of other part of head, initial encounter (principal); I10 Essential (primary) hypertension; F17.210 Nicotine dependence, cigarettes, uncomplicated; W19.XXXA Unspecified fall, initial encounter
CPT/HCPCS: 12013; 70450; 72125; 90471; 90715; 96374; J1885

== ENCOUNTER 2020-06-27 10:44 | Emergency (ER) | payer SELFPAY | END 2020-06-27 13:16 | disposition home or self-care (01) | LOC: ERS 10:44 | DX: S01.81XD Laceration without foreign body of other part of head, subsequent encounter (principal) ==

== ENCOUNTER 2023-03-22 00:46 | Inpatient (IN) | payer OTHER, SELFPAY ==
[2023-03-22 01:44] LABS: #Monocytes 0.8 thou/uL (0.11-0.59); #Neutrophils 8.5 thou/uL (1.40-6.50); %Basophils 0.1 % (0.0-1.0); %Eosinophils 0.1 % (0.0-10.0); %Lymphocytes 9.8 % (21.0-51.0); %Monocytes 7.5 % (0.0-10.0); %Neutrophils 81.8 % (42.0-75.0); Hemoglobin 9.7 g/dL (14.0-18.0); Mean Corpuscular HGB CONC 29.4 g/dL (32.0-36.0); Mean Corpuscular Hemoglobin 20.8 pg (27.0-31.0); Mean Corpuscular Volume 70.8 fl (78.0-98.0); Mean Platelet Volume 8.9 fL (7.4-10.4); Platelet Count 340 10x3/uL (130-400); RBC Distribution Width 24.8 % (11.5-14.5); Red Blood Cell (RBC) Count 4.66 mill/uL (4.70-6.10); White Blood Cell (WBC) Count 10.4 10x3/uL (4.8-10.8)
[2023-03-22 02:00] LABS: INR-International Normal Ratio 1.2
[2023-03-22 02:01] LABS: PTT 28.8 sec (22.9-36.1)
[2023-03-22 02:10] LABS: Anisocytosis MODERATE=16-30 cells HPF (0-5); CellaVision Operator ID lab.sh2; Hypochromia SLIGHT = 6-15 cells HPF (0-5); Macrocytosis SLIGHT = 6-15 cells HPF (0-5); Microcytosis MODERATE=15-30 cells HPF (0-5); Ovalocytes SLIGHT = 2-5 cells HPF (0-1); Platelet Adequacy Comment Platelets Normal; Polychromasia SLIGHT = 2-3 cells HPF (0-2); Target Cells MODERATE= 6-15 cells HPF (0-1); Troponin I 0.015 ng/mL (< 0.028)
[2023-03-22 02:13] LABS: ALT (SGPT) 15 U/L (8-55); AST (SGOT) 21 U/L (5-34); Albumin 2.9 g/dL (3.4-4.8); Alkaline Phosphatase 82 U/L (40-110); Anion Gap 17 mmol/L (10-20); BUN (Urea Nitrogen) 34 mg/dL (8.4-25.7); Bilirubin, Total 1.2 mg/dL (0.2-1.2); CK (CPK) 35 U/L (30-200); Calc. Creatinine Clearance 0 mL/min (70-130); Calcium 11.7 mg/dL (7.8-10.44); Carbon Dioxide 24 mmol/L (23-31); Chloride 112 mmol/L (98-107); Estimated GFR 99; Globulin 4.7 g/dL (2.4-3.5); Glucose 89 mg/dL (80-115); Lipase 11 U/L (8-78); Potassium 3.4 mmol/L (3.5-5.1); Protein, Total 7.6 g/dL (5.8-8.1); Sodium 150 mmol/L (136-145)
[2023-03-22 03:53] LABS: Bacteria/HPF None Seen HPF (None Seen); Bilirubin Negative (Negative); Blood, Urine 1+ (Negative); CAUTI Indications for Culture Dysuria,urgency,freq; Clarity Clear (Clear); Glucose, Urine (Dipstick) Normal (Negative); Ketone, Urine 10 mg/dL (Negative); Leukocyte Negative Leu/uL (Negative); Nitrite Negative (Negative); Protein, Urine (Dipstick) 10 mg/dL (Neg-Trace); RBC/HPF 21-50 HPF (0-3); Specific Gravity, Urine 1.049 (1.002-1.036); Squamous Epithelial 0-3 HPF (0-3); pH, Urine 5.5 (5.0-9.0)
[2023-03-22 03:55] LABS: Urine Culture Reflex Yes Yes
[2023-03-22] MEDS ORDERED: Ondansetron ODT 4 MG TAB SL PRN (05:15)
[2023-03-22] MEDS ORDERED: Lactated Ringer's 1,000 ML IV SCH (05:15)
[2023-03-22] MEDS ORDERED: Ipratropium/Albuterol 3 ML NEB EZPAP PRN (05:17)
[2023-03-22] MEDS ORDERED: Acetaminophen 325 MG TAB PO PRN (05:19)
[2023-03-22 05:27] LABS: Actual Bicarbonate (HCO3a) 25.9 mEq/L (22-28); Analyzer IN Cardio ER; Base Excess (BEa) 1.9 mEq/L (-2.0 to +3.0); CO2 Tension 37.7 mmHg (35.0-45.0); Calcium, Ionized (arterial) 1.52 mmol/L (1.12-1.30); Carboxyhemoglobin (COHb) 0.5 gm% (0.0-3.0); Hematocrit-ABG 30 % (42.0-52.0); Hemoglobin (Hb) 10.2 g/dL (14.0-18.0); Potassium - ABG Lab 3.16 mmol/L (3.70-5.30); pH, Arterial 7.454 (7.35-7.45)
[2023-03-22 05:27] LABS: Lactic Acid 1.7 mmol/L (0.5-2.2)
[2023-03-22 05:39] LABS: O2 Tension (PaO2), arterial 58.6 mmHg (> 80.0); Puncture Site RRA
[2023-03-22 05:40] LABS: ALV-art Gradient 44.005 mmHg (0-20)
[2023-03-22] MEDS ORDERED: Vancomycin 1 GM/200 ML (FROZEN) BAG ONE (05:53)
[2023-03-22 05:58] LABS: Amphetamine Not Detected (NotDetected); Barbiturates Screen Not Detected (NotDetected); Benzodiazepine Screen Not Detected (NotDetected); Cocaine Metabolite Screen Not Detected (NotDetected); Methadone Not Detected (NotDetected); Methamphetamine Not Detected (NotDetected); Opiate Screen Not Detected (NotDetected); Oxycodone Screen Not Detected (NotDetected); Phencyclidine (PCP) Not Detected (NotDetected); THC/Cannabinoid Screen Not Detected (NotDetected); Tricyclic Screen Not Detected (NotDetected)
[2023-03-22 07:01] LABS: #Monocytes 0.9 thou/uL (0.11-0.59); #Neutrophils 9.9 thou/uL (1.40-6.50); %Basophils 0.1 % (0.0-1.0); %Eosinophils 0.1 % (0.0-10.0); %Lymphocytes 8.5 % (21.0-51.0); %Monocytes 7.5 % (0.0-10.0); %Neutrophils 83.3 % (42.0-75.0); Hematocrit 33.5 % (42.0-52.0); Hemoglobin 9.7 g/dL (14.0-18.0); Mean Corpuscular Hemoglobin 20.5 pg (27.0-31.0); Mean Corpuscular Volume 70.8 fl (78.0-98.0); Mean Platelet Volume 9.7 fL (7.4-10.4); Platelet Count 323 10x3/uL (130-400); Red Blood Cell (RBC) Count 4.73 mill/uL (4.70-6.10); White Blood Cell (WBC) Count 11.9 10x3/uL (4.8-10.8)
[2023-03-22 07:34] LABS: Iron Binding Capacity, Total 183 mcg/dL (261-462)
[2023-03-22 07:35] LABS: Iron 52 ug/dL (65-175)
[2023-03-22] MEDS ORDERED: Sodium Chloride 0.9% 100 ML ONE (07:44)
[2023-03-22] MEDS ORDERED: Piperacillin/Tazobactam 3.375 GM VIAL ONE (07:44)
[2023-03-22] MEDS ORDERED: Iopamidol-370 76% 500 ML MDV (1 ML CHARGE) ONE (09:14)
[2023-03-22] MEDS: Potassium Chloride 20 MEQ in Premix 1 BAG IVPB SCH (10:37)
[2023-03-22] MEDS: Dextrose 5% in Water 1,000 ML IV SCH (10:37)
[2023-03-22] MEDS: Pantoprazole 40 MG VIAL IVP SCH (10:38)
[2023-03-22 16:49] LABS: Anion Gap 11 mmol/L (10-20); BUN (Urea Nitrogen) 23 mg/dL (8.4-25.7); Calc. Creatinine Clearance 70 mL/min (70-130); Calcium 11.5 mg/dL (7.8-10.44); Carbon Dioxide 28 mmol/L (23-31); Chloride 111 mmol/L (98-107); Estimated GFR 101; Glucose 99 mg/dL (80-115); Potassium 3.2 mmol/L (3.5-5.1); Sodium 147 mmol/L (136-145)
[2023-03-22] MEDS ORDERED: Electrolyte Replacement Protocol 1 EACH FS SCH (17:15)
[2023-03-22] MEDS: Potassium Chloride 40 MEQ in Dextrose 5% in Water 1,000 ML IV SCH (20:19)
[2023-03-23 04:20] LABS: #Monocytes 1.4 thou/uL (0.11-0.59); #Neutrophils 12.5 thou/uL (1.40-6.50); %Basophils 0.1 % (0.0-1.0); %Eosinophils 0.2 % (0.0-10.0); %Lymphocytes 6.3 % (21.0-51.0); %Monocytes 9.5 % (0.0-10.0); %Neutrophils 82.6 % (42.0-75.0); Hematocrit 30.3 % (42.0-52.0); Hemoglobin 9.1 g/dL (14.0-18.0); Mean Corpuscular Hemoglobin 20.9 pg (27.0-31.0); Mean Corpuscular Volume 69.7 fl (78.0-98.0); Mean Platelet Volume 9.6 fL (7.4-10.4); Platelet Count 259 10x3/uL (130-400); RBC Distribution Width 24.7 % (11.5-14.5); Red Blood Cell (RBC) Count 4.35 mill/uL (4.70-6.10); White Blood Cell (WBC) Count 15.1 10x3/uL (4.8-10.8)
[2023-03-23 05:32] LABS: Anion Gap 13 mmol/L (10-20); BUN (Urea Nitrogen) 18 mg/dL (8.4-25.7); Calc. Creatinine Clearance 78 mL/min (70-130); Calcium 12.1 mg/dL (7.8-10.44); Carbon Dioxide 25 mmol/L (23-31); Chloride 108 mmol/L (98-107); Estimated GFR 104; Glucose 96 mg/dL (80-115); Potassium 3.4 mmol/L (3.5-5.1); Sodium 143 mmol/L (136-145)
[2023-03-23] MEDS ORDERED: FLU VACC QS2023(65UP)/MF59C/PF 60 MCG/0.5 ML SYRINGE IM ONE (09:00)
[2023-03-23] MEDS: Potassium Chloride 20 MEQ in Premix 1 BAG IVPB SCH (09:39)
[2023-03-23] MEDS: Potassium Chloride 20 MEQ in Lactated Ringer's 1,000 ML IV SCH (09:39)
[2023-03-23 17:04] LABS: Potassium 4.3 mmol/L (3.5-5.1)
[2023-03-24] MEDS: Morphine 2 MG/ML VIAL SLOW IVP PRN (01:50)
[2023-03-24 06:27] LABS: #Monocytes 1.5 thou/uL (0.11-0.59); %Basophils 0.1 % (0.0-1.0); %Eosinophils 0.1 % (0.0-10.0); %Neutrophils 82.5 % (42.0-75.0); Hematocrit 34.9 % (42.0-52.0); Hemoglobin 10.2 g/dL (14.0-18.0); Mean Corpuscular HGB CONC 29.2 g/dL (32.0-36.0); Mean Corpuscular Hemoglobin 20.8 pg (27.0-31.0); Mean Corpuscular Volume 71.2 fl (78.0-98.0); Mean Platelet Volume 9.1 fL (7.4-10.4); Platelet Count 244 10x3/uL (130-400); RBC Distribution Width 24.9 % (11.5-14.5)
[2023-03-24 06:52] LABS: Anion Gap 15 mmol/L (10-20); BUN (Urea Nitrogen) 12 mg/dL (8.4-25.7); Calc. Creatinine Clearance 81 mL/min (70-130); Carbon Dioxide 25 mmol/L (23-31); Chloride 111 mmol/L (98-107); Estimated GFR 105; Glucose 64 mg/dL (80-115); Potassium 3.9 mmol/L (3.5-5.1); Sodium 147 mmol/L (136-145)
[2023-03-24 10:56] LABS: CellaVision Operator ID LAB.GE; Giant Platelets 0.9 % (0-5); Hypochromia SLIGHT = 6-15 cells HPF (0-5); Large Platelets 5.2 % (0-5); Microcytosis MODERATE=15-30 cells HPF (0-5); Platelet Adequacy Comment Platelets Normal; Polychromasia SLIGHT = 2-3 cells HPF (0-2); Target Cells SLIGHT = 2-5 cells HPF (0-1)
[2023-03-24] MEDS: D5 1/2 NS w/20 mEq KCL 1,000 ML IV SCH (12:44)
[2023-03-24] MEDS: Scopolamine 1 mg/72 hour Patch TD SCH (15:57)
[2023-03-25] MEDS ORDERED: hydrALAZINE 20 MG/ML VIAL SLOW IVP PRN (01:07)
[2023-03-25] MEDS: Labetalol HCl 100 MG/20 ML VIAL SLOW IVP PRN (01:21)
[2023-03-25 06:18] LABS: #Monocytes 1.4 thou/uL (0.11-0.59); #Neutrophils 10.8 thou/uL (1.40-6.50); %Basophils 0.1 % (0.0-1.0); %Eosinophils 0.2 % (0.0-10.0); %Lymphocytes 7.4 % (21.0-51.0); %Monocytes 10.6 % (0.0-10.0); %Neutrophils 80.7 % (42.0-75.0); Hematocrit 33.9 % (42.0-52.0); Hemoglobin 9.7 g/dL (14.0-18.0); Mean Corpuscular HGB CONC 28.6 g/dL (32.0-36.0); Mean Corpuscular Hemoglobin 20.6 pg (27.0-31.0); Mean Corpuscular Volume 71.8 fl (78.0-98.0); Mean Platelet Volume 9.5 fL (7.4-10.4); Platelet Count 183 10x3/uL (130-400); RBC Distribution Width 24.9 % (11.5-14.5); Red Blood Cell (RBC) Count 4.72 mill/uL (4.70-6.10); White Blood Cell (WBC) Count 13.4 10x3/uL (4.8-10.8)
[2023-03-25 06:49] LABS: Anion Gap 10 mmol/L (10-20); BUN (Urea Nitrogen) 11 mg/dL (8.4-25.7); Calc. Creatinine Clearance 80 mL/min (70-130); Calcium 12.7 mg/dL (7.8-10.44); Carbon Dioxide 25 mmol/L (23-31); Chloride 113 mmol/L (98-107); Estimated GFR 104; Glucose 93 mg/dL (80-115); Potassium 3.4 mmol/L (3.5-5.1); Sodium 145 mmol/L (136-145)
[2023-03-25] MEDS: Potassium Chloride 20 MEQ in Premix 1 BAG IVPB SCH (10:31)
[2023-03-28 02:58] LABS: #Eosinphils 0.1 thou/uL (0.0-0.7); #Monocytes 1.1 thou/uL (0.11-0.59); #Neutrophils 9.3 thou/uL (1.40-6.50); %Basophils 0.1 % (0.0-1.0); %Eosinophils 0.4 % (0.0-10.0); %Lymphocytes 8.3 % (21.0-51.0); %Monocytes 9.3 % (0.0-10.0); %Neutrophils 81.1 % (42.0-75.0); Hemoglobin 9.2 g/dL (14.0-18.0); Mean Corpuscular HGB CONC 29.7 g/dL (32.0-36.0); Mean Corpuscular Hemoglobin 20.5 pg (27.0-31.0); Mean Corpuscular Volume 69.2 fl (78.0-98.0); Mean Platelet Volume 9.4 fL (7.4-10.4); Platelet Count 358 10x3/uL (130-400); RBC Distribution Width 24.6 % (11.5-14.5); Red Blood Cell (RBC) Count 4.48 mill/uL (4.70-6.10); White Blood Cell (WBC) Count 11.5 10x3/uL (4.8-10.8)
[2023-03-28 03:49] LABS: Anion Gap 10 mmol/L (10-20); BUN (Urea Nitrogen) 13 mg/dL (8.4-25.7); Calc. Creatinine Clearance 57 mL/min (70-130); Carbon Dioxide 27 mmol/L (23-31); Chloride 108 mmol/L (98-107); Estimated GFR 95; Glucose 92 mg/dL (80-115); Magnesium 1.7 mg/dL (1.6-2.6); Potassium 3.2 mmol/L (3.5-5.1); Sodium 142 mmol/L (136-145)
[2023-03-28 03:58] LABS: Calcium 13.3 mg/dL (7.8-10.44); Critical Call Chemistry NUR.LS19@0358
[2023-03-28] MEDS: Potassium Chloride 20 MEQ in Premix 1 BAG IVPB SCH (05:47)
[2023-03-28] MEDS: Magnesium 2 GM/50 ML(in water) 2 GM in Premix 1 BAG IVPB SCH (05:50)
[2023-03-28] MEDS: Zoledronic Acid 4 MG in Sodium Chloride 0.9% 100 ML IVPB SCH (11:18)
[2023-03-28] MEDS: Acetaminophen 650 MG Suppository PR PRN (20:39)
[2023-03-29] MEDS: Calcitonin,Salmon,Synthetic 400 UNITS/2 ML SC SCH (10:14)
[2023-03-30 08:36] LABS: ALT (SGPT) 11 U/L (8-55); AST (SGOT) 24 U/L (5-34); Albumin 2.2 g/dL (3.4-4.8); Alkaline Phosphatase 91 U/L (40-110); Anion Gap 8 mmol/L (10-20); BUN (Urea Nitrogen) 14 mg/dL (8.4-25.7); Bilirubin, Total 1.1 mg/dL (0.2-1.2); Calc. Creatinine Clearance 53 mL/min (70-130); Calcium 10.8 mg/dL (7.8-10.44); Carbon Dioxide 26 mmol/L (23-31); Chloride 113 mmol/L (98-107); Estimated GFR 91; Glucose 103 mg/dL (80-115); Protein, Total 6.2 g/dL (5.8-8.1); Sodium 144 mmol/L (136-145)
[2023-03-30] MEDS: Magnesium 2 GM/50 ML(in water) 2 GM in Premix 1 BAG IVPB SCH (14:54)
[2023-03-30] MEDS: Potassium Chloride 20 MEQ in Premix 1 BAG IVPB SCH (14:55)
[2023-03-30] MEDS: Scopolamine 1 mg/72 hour Patch TD SCH (15:40)
[2023-03-30] MEDS: DRY MOUTH SPRAY MM SCH (17:21)
[2023-03-31 16:38] LABS: Anion Gap 10 mmol/L (10-20); BUN (Urea Nitrogen) 11 mg/dL (8.4-25.7); Calc. Creatinine Clearance 70 mL/min (70-130); Carbon Dioxide 22 mmol/L (23-31); Chloride 113 mmol/L (98-107); Estimated GFR 101; Glucose 101 mg/dL (80-115); Sodium 142 mmol/L (136-145)
[2023-03-31] MEDS: Potassium Chloride 20 MEQ in Premix 1 BAG IVPB SCH (17:59)
[2023-03-31] MEDS: Potassium Chloride 40 MEQ in Dextrose 5%-Lactated Ringers 1,000 ML IV SCH (18:03)
[2023-04-01 06:58] LABS: Anion Gap 10 mmol/L (10-20); BUN (Urea Nitrogen) 9 mg/dL (8.4-25.7); Calc. Creatinine Clearance 71 mL/min (70-130); Calcium 8.9 mg/dL (7.8-10.44); Carbon Dioxide 20 mmol/L (23-31); Chloride 115 mmol/L (98-107); Estimated GFR 101; Glucose 78 mg/dL (80-115); Sodium 142 mmol/L (136-145)
[2023-04-01] MEDS: Potassium Chloride 20 MEQ in Premix 1 BAG IVPB SCH (08:45)
[2023-04-01 13:13] VITALS: BMI 15.6
[2023-04-02 06:19] LABS: Anion Gap 10 mmol/L (10-20); BUN (Urea Nitrogen) 8 mg/dL (8.4-25.7); Calc. Creatinine Clearance 70 mL/min (70-130); Calcium 8.8 mg/dL (7.8-10.44); Carbon Dioxide 20 mmol/L (23-31); Chloride 116 mmol/L (98-107); Estimated GFR 101; Glucose 89 mg/dL (80-115); Potassium 3.4 mmol/L (3.5-5.1); Sodium 143 mmol/L (136-145)
[2023-04-03 06:17] LABS: Anion Gap 7 mmol/L (10-20); BUN (Urea Nitrogen) 9 mg/dL (8.4-25.7); Calc. Creatinine Clearance 71 mL/min (70-130); Calcium 8.8 mg/dL (7.8-10.44); Carbon Dioxide 25 mmol/L (23-31); Chloride 117 mmol/L (98-107); Estimated GFR 101; Glucose 97 mg/dL (80-115); Potassium 3.3 mmol/L (3.5-5.1); Sodium 146 mmol/L (136-145)
[2023-04-03] MEDS: Potassium Chloride 20 MEQ in Premix 1 BAG IVPB SCH (11:08)
[2023-04-03] MEDS: Ondansetron PF 4 MG/2 ML Vial IVP PRN (21:00)
[2023-04-04 06:47] LABS: Anion Gap 10 mmol/L (10-20); BUN (Urea Nitrogen) 11 mg/dL (8.4-25.7); Calc. Creatinine Clearance 67 mL/min (70-130); Calcium 8.9 mg/dL (7.8-10.44); Carbon Dioxide 21 mmol/L (23-31); Chloride 119 mmol/L (98-107); Estimated GFR 100; Glucose 91 mg/dL (80-115); Potassium 3.9 mmol/L (3.5-5.1); Sodium 146 mmol/L (136-145)
[2023-04-04 17:03] LABS: SARS-CoV-2 NAA Rapid Test Not Detected (NotDetected)
[2023-04-05 06:28] LABS: Anion Gap 10 mmol/L (10-20); BUN (Urea Nitrogen) 10 mg/dL (8.4-25.7); Calc. Creatinine Clearance 62 mL/min (70-130); Calcium 8.8 mg/dL (7.8-10.44); Carbon Dioxide 21 mmol/L (23-31); Chloride 121 mmol/L (98-107); Estimated GFR 98; Glucose 96 mg/dL (80-115); Potassium 3.7 mmol/L (3.5-5.1); Sodium 148 mmol/L (136-145)
[2023-04-06 05:29] LABS: Anion Gap 13 mmol/L (10-20); BUN (Urea Nitrogen) 10 mg/dL (8.4-25.7); Calc. Creatinine Clearance 64 mL/min (70-130); Carbon Dioxide 21 mmol/L (23-31); Chloride 122 mmol/L (98-107); Estimated GFR 99; Glucose 98 mg/dL (80-115); Potassium 3.8 mmol/L (3.5-5.1)
[2023-04-06 05:32] LABS: Critical Call Chemistry NUR.CLH @0532; Sodium 152 mmol/L (136-145)
[2023-04-06 08:41] VITALS: BP 148/87; TEMP 97.5
== END 2023-04-06 09:05 | disposition hospice, inpatient (51) | DRG 374 ==
LOC: ERS 00:46 → ERHOLD 06:12 → IMCU/EMU 09:56 → T4-B 03-25 21:07 → 2NO 03-28 06:25 → T4-A 03-28 17:24
PROVIDERS: ADMIT Internal Medicine; ATTEND Internal Medicine
PROC: 4A033R1 Measurement of Arterial Saturation, Peripheral, Percutaneous Approach (ICD-10-PCS; principal; 2023-03-22)
PROC: 5A0935A Assistance with Respiratory Ventilation, Less than 24 Consecutive Hours, High Flow/Velocity Cannula (ICD-10-PCS; 2023-03-22)
DX: C15.9 Malignant neoplasm of esophagus, unspecified (principal); E43 Unspecified severe protein-calorie malnutrition; J96.01 Acute respiratory failure with hypoxia; C78.02 Secondary malignant neoplasm of left lung; C78.01 Secondary malignant neoplasm of right lung; C78.7 Secondary malignant neoplasm of liver and intrahepatic bile duct; C79.51 Secondary malignant neoplasm of bone; E87.0 Hyperosmolality and hypernatremia; Z68.1 Body mass index [BMI] 19.9 or less, adult; Z51.5 Encounter for palliative care; Z66 Do not resuscitate; E86.0 Dehydration; D63.0 Anemia in neoplastic disease; I10 Essential (primary) hypertension; Z79.899 Other long term (current) drug therapy; F17.210 Nicotine dependence, cigarettes, uncomplicated; E87.6 Hypokalemia; E83.52 Hypercalcemia; Z11.52 Encounter for screening for COVID-19
CPT/HCPCS: 36415; 36600; 71045; 71275; 80048; 80053; 80306; 81001; 82550; 82728; 82805; 83540; 83550; 83605; 83690; 83735; 83880; 84145; 84443; 84484; 85025; 85610; 85730; 87040; 87086; 93005; 93010; 96365; 96367; C9113; J0630; J2272; J2405; J2543; J3370-JW; J3475; J3480; J3489; J3490; J7070; J7120; Q9967; U0002